=== PATIENT | female | born 1955 | race Asian ===

== ENCOUNTER 2019-04-05 10:22 | Emergency (ER) | payer MEDICARE ==
[~2019-04-05] VITALS: Ht 157.5 cm; Wt 57.0 kg
--- NOTE | 2019-04-05 10:24 | NUR ---
PATIENT BROUGHT IN BY JULIANE WITH CHIEF COMPLAINT OF FEELING DIZZY THIS AM. PATIENT CHECKED BP AND FOUND IT TO BE HIGHER THAN NORMAL SBP 160, NORMALLY SBP 130. THE PATIENT STATED BRIEF TIME OF SOB. THE PATIENT ARRIVES ALERT, ORIENTED, WARM AND DRY, DENIES CP, SOB, N/V. 12 LEAD EKG NO DEFICITS NOTED.
[2019-04-05] MEDS ORDERED: DILT180C9 PO (10:37)
[2019-04-05] MEDS ORDERED: ASPI-650 PO (10:37)
[2019-04-05] MEDS ORDERED: EXEM25TA PO (10:37)
--- NOTE | 2019-04-05 11:26 | NUR ---
Patient is resting comfortably in bed. Vital Signs within normal limits.
[2019-04-05 11:42] LABS: BASOPHILS # (AUTO) 0.02 x10^3/uL (0-0.1); BASOPHILS % (AUTO) 1 % (0-1); EOSINOPHILS # (AUTO) 0.05 x10^3/uL (0-0.4); EOSINOPHILS % (AUTO) 1 % (1-7); LYMPHOCYTES % (AUTO) 31 % (22-44); MD NO; MEAN CORPUSCULAR HEMOGLOBIN 23.2 pg (27.0-34.8); MEAN CORPUSCULAR VOLUME 74.7 fL (80-100); MEAN PLATELET VOLUME 8.8 fL (7.4-10.4); MONOCYTES # (AUTO) 0.19 x10^3/uL (0.2-0.8); MONOCYTES % (AUTO) 5 % (2-9); NEUTROPHILS # (AUTO) 2.37 x10^3/uL (1.8-6.8); NEUTROPHILS % (AUTO) 62 % (42-75); PLATELET COUNT 226 x10^3/uL (130-400); RED BLOOD COUNT 5.67 x10^6/uL (3.82-5.3); RED CELL DISTRIBUTION WIDTH 15.1 % (9.6-15.2)
[2019-04-05 11:50] LABS: ALANINE AMINOTRANSFERASE 38 U/L (12-78); ALBUMIN 3.9 g/dL (3.4-5.0); ANION GAP 5 mmol/L (5-15); CALCIUM 9.1 mg/dL (8.5-10.1); CHLORIDE 110 mmol/L (98-107); CREATININE 0.69 mg/dL (0.55-1.02)
[2019-04-05 11:54] LABS: ALKALINE PHOSPHATASE 66 U/L (45-117); BILIRUBIN,TOTAL 0.4 mg/dL (0.2-1.0); TOTAL PROTEIN 7.7 g/dL (6.4-8.2); TROPONIN I < 0.015 ng/mL (0.000-0.045)
--- NOTE | 2019-04-05 12:30 | NUR ---
Patient is resting comfortably in bed. Vital Signs within normal limits.
[2019-04-05 13:15] VITALS: BP 93/42
--- NOTE | 2019-04-05 13:18 | NUR ---
DISCHARGE INSTUCTIONS REVIEWED.
== END 2019-04-05 13:32 | disposition home or self-care (01) ==
LOC: ED 12:40
DX: R55 Syncope and collapse (principal); I10 Essential (primary) hypertension
CPT/HCPCS: 36415; 71045; 80053; 83880; 84484; 85025; 93005; 99284